=== PATIENT | female | born 1970 | race Caucasian/White ===

== ENCOUNTER 2024-09-13 10:07 | Emergency (ER) | payer BC, SELFPAY ==
[2024-09-13 10:14] VITALS: BP 179/97
--- NOTE | 2024-09-13 11:33 | ED.GENMED ---
History of Present Illness
General
Chief Complaint: Musculo-Skeletal Complaint
Source: patient
Exam Limitations: none
Time Seen by Provider: 09/13/24 11:25
History of Present Illness
History of Present Illness:
See MDM
Past History
Past History
ED Past Medical History: None
ED Past Surgical History: None
Social History
Tobacco: Non-smoker
Phy Exam
Physical Exam
Physical Exam:
See MDM
Course
Orders/Labs/Results
Orders:
Orders
09/13/24 10:09
CR Wrist - Left Min 3 Views Urgent
Comment:
Reason For Exam: Fall on outstretched hand
09/13/24 11:33
Ondansetron Orally Disint [Zofran Odt (Orally Disintegrating)] 4 mg PO NOW STA
Oxycodone/Acetaminophen [Percocet 5/325] 1 tablet PO NOW STA
Vital Signs
Initial and Last Documented VS:
Initial Vital Signs
Temp Pulse Resp BP Pulse Ox
98.7 F 85 18 179/97 97
09/13/24 10:14 09/13/24 10:14 09/13/24 10:14 09/13/24 10:14 09/13/24 10:14
Last Documented Vital Signs
Temp Pulse Resp BP Pulse Ox
98.7 F 85 18 179/97 97
09/13/24 10:14 09/13/24 10:14 09/13/24 10:14 09/13/24 10:14 09/13/24 10:14
MDM/Problems Addressed
Differential Diagnosis Includes:
HPI and MDM Narrative:
53-year-old female presenting for evaluation of left wrist pain. She slipped on the ice last night and braced her fall with her left hand. She is left-hand dominant. X-ray was done prior to my evaluation and consistent with distal radius and ulna
fracture. There is minimal displacement. There is decreased range of motion and muscle strength secondary to pain. However, sensation grossly intact and cap refill less than 2 seconds. There is a deformity noted to her wrist. Will place in
volar splint and provide pain control and discussed follow-up with hand
Physical exam
General: Mildly uncomfortable
HEENT: protecting airway
Neck: appears supple
CV: No evidence of cyanosis
Resp: No accessory muscle use
Abd: Non-distended
Extremities: Subtle deformity to distal left radius. Distal hand otherwise neurovascularly intact
Neuro: alert
Psych: Normal affect
Skin: Intact
Problems Addressed including Acute and Chronic Conditions affecting care:
1. Left radius fracture
Acuity: acute
Prognosis: unstable
Details: We discussed this may need surgery. Will place in volar splint discussed follow-up with hand. Patient provided with pain medicine
Differential Diagnosis (but not limited to): Wrist pain, wrist fracture
Testing considered: CT head patient denies head injury
Drug therapy (if applicable): OTC meds, please see d/c instruction regarding Rx drugs
Amount and/or Complexity of Data Reviewed
Clinical info obtained from: Patient
External data reviewed: N/A
Labs I independently reviewed (but not limited to): N/A
Radiology: X-ray independently reviewed: Left wrist x-ray consistent with distal radius fracture with some displacement. Distal ulnar fracture noted as well
Pulse Ox: not hypoxic
EKG independently reviewed: N/A
Proposal Review Analyst: N/A
Critical Care: N/A
Risk of Complication:
Social Determinants of health: Good social support
Discussed with other providers: N/A
Escalation of Care includes Admit/Obs: After being observed in the Emergency Department, pt stable for discharge.
Occasional wrong word or 'sound a like' substitutions may have occurred due to the inherent limitations of voice recognition software. Read the chart carefully and recognize, using context, where substitutions have occurred.
*Critical Care Note
Total Time (30-74mins, 75-104mins- exclusive of procedures): Not Applicable
ED Attending Note
-
Portions of this chart may have been created with voice recognition software.� Occasional wrong word or��sound alike� substitutions may have occurred due to the inherent limitations of voice recognition software.
Discharge Plan
Departure
Patient Disposition: Home (Routine Discharge)
Date of Disposition: 09/13/24
Time of Disposition: 11:35
Patient with high blood pressure during this ER visit?: Yes
Discharge Problem:
Fracture of radius, distal, with ulna, left, closed
Instructions: Wrist Fracture (DC), BLOOD PRESSURE
Prescriptions:
New
ondansetron 4 mg Tablet,Disintegrating
4 mg PO BIDPRN PRN (Reason: nausea/vomiting) Qty: 14 0RF
oxycodone 5 mg tablet
5 mg PO Q8H PRN (Reason: Pain) Qty: 14 0RF
Referrals:
Dave Mullins MD [Active] -
Activity Restrictions/Additional Instructions:
Please return for any worsening symptoms.
You may return at any time if you have further concerns.
Please follow up with the orthopedist at the first available appointment, preferably this week. Please let them know that you were seen in the emergency department and were diagnosed with a wrist fracture.
You were given a prescription for narcotics. If you require this pain medicine, please take a daily [id number] stool softener to avoid constipation.
Thank you for choosing [facility].
Interventions
Interventions:
*Risk Screen - Suicide Last Done: 09/13/24 10:14
*Neglect/Abuse Screening Last Done: 09/13/24 10:14
Discharge Date and Time
Print Language: [place]
[2024-09-13] MEDS: PERCOCET 5/325 1 TABLET PO (11:41)
[2024-09-13] MEDS: ZOFRAN ODT (ORALLY DISINTEGRATING) 4 MG PO (11:41)
== END 2024-09-13 12:26 | disposition home or self-care (01) ==
LOC: EMR 10:07
PROVIDERS: EMERGENCY PHYSICIAN Student in an Organized Health Care Education/Training Program; FAMILY PHYSICIAN Family Medicine
DX: S52.592A Other fractures of lower end of left radius, initial encounter for closed fracture (principal); S52.615A Nondisplaced fracture of left ulna styloid process, initial encounter for closed fracture; W00.0XXA Fall on same level due to ice and snow, initial encounter
CPT/HCPCS: 99283; 29125; 73110

== ENCOUNTER 2024-09-16 13:23 | Day surgery (SDC) | payer BC, SELFPAY ==
[2024-09-16] VITALS (8 sets, daily range): BP systolic 134–162; BP diastolic 82–103; BMI 21.2
[2024-09-16] MEDS: TYLENOL 1000 MG PO (13:48)
[2024-09-16] MEDS: NORMOSOL-R/PLASMALYTE-A 1000 IV (13:48)
[2024-09-16 13:56] LABS: Hemoglobin 13.7 g/dL (12.0-16.0)
[2024-09-16 14:35] LABS: Blood Urea Nitrogen 12 mg/dl (7-17); Estimated Creatinine Clearance 78 ml/min; Glucose 76 mg/dl (70-99)
--- NOTE | 2024-09-16 17:14 | W.IMMPOSTOP ---
Surgical Immed Post Op Note
-
Primary Surgeon: Akbar Ohara MD
Assisting Surgeon:
Pre-op Diagnosis: left distal radius fracture
Post-op Diagnosis: left distal radius fracture
Procedure Performed: open reduction internal fixation left distal radius
Anesthesia Type: general with regional block
Specimen / Cultures: none
Estimated Blood Loss: 5mL
Complications: none apparent
Operative Findings: left distal radius fracture, extra-articular
Implants: [employer] Variax2 3 hole volar distal radius locking plate
Tourniquet time: 103 minutes at 250mm Hg
Operative dictation #: [id number]
== END 2024-09-16 19:17 | disposition home or self-care (01) ==
LOC: SDS 13:23
PROVIDERS: ATTENDING PHYSICIAN Student in an Organized Health Care Education/Training Program
DX: S52.502A Unspecified fracture of the lower end of left radius, initial encounter for closed fracture (principal); W00.9XXA Unspecified fall due to ice and snow, initial encounter
CPT/HCPCS: 25607; 73110; 82565; 82947; 84520; 85018; 93005; C1713